=== PATIENT | female | born 1960 | race Caucasian/White ===

== ENCOUNTER 2019-08-15 08:54 | Outpatient (CLI) | payer OTHER ==
[2019-08-15] MEDS ORDERED: THC PO (09:22)
[2019-08-15] MEDS ORDERED: SIMV20TA19 PO (09:22)
[2019-08-15 10:10] LABS: ANION GAP 7 mmol/L (5-15); CALCIUM 9.2 mg/dL (8.5-10.1); CHLORIDE 107 mmol/L (98-107); CREATININE 0.91 mg/dL (0.55-1.02)
[2019-08-15 10:23] LABS: BASOPHILS # (AUTO) 0.03 x10^3/uL (0-0.1); BASOPHILS % (AUTO) 1 % (0-1); EOSINOPHILS # (AUTO) 0.11 x10^3/uL (0-0.4); EOSINOPHILS % (AUTO) 2 % (1-7); LYMPHOCYTES # (AUTO) 1.38 x10^3/uL (1-3.4); LYMPHOCYTES % (AUTO) 23 % (22-44); MD NO; MEAN CORPUSCULAR HEMOGLOBIN 32.2 pg (27.0-34.8); MEAN CORPUSCULAR HGB CONC 33.7 g/dL (32.4-35.8); MEAN CORPUSCULAR VOLUME 95.6 fL (80-100); MEAN PLATELET VOLUME 8.9 fL (7.4-10.4); MONOCYTES # (AUTO) 0.55 x10^3/uL (0.2-0.8); MONOCYTES % (AUTO) 9 % (2-9); NEUTROPHILS # (AUTO) 4.06 x10^3/uL (1.8-6.8); NEUTROPHILS % (AUTO) 66 % (42-75); PLATELET COUNT 180 x10^3/uL (130-400); RED BLOOD COUNT 4.61 x10^6/uL (3.82-5.3); RED CELL DISTRIBUTION WIDTH 12.9 % (9.6-15.2)
== END 2019-08-15 23:59 | disposition home or self-care (01) ==
LOC: STAR 08:54
PROVIDERS: ATTEND Orthopaedic Surgery
DX: Z01.818 Encounter for other preprocedural examination (principal); M17.12 Unilateral primary osteoarthritis, left knee
CPT/HCPCS: 36415; 80048; 85025; 87081; 93005

== ENCOUNTER 2019-08-22 05:35 | Observation (INO) | payer OTHER ==
[~2019-08-22] VITALS: Ht 162.6 cm; Wt 82.0 kg
[~2019-08-22 05:35] MED LIST: SIMV20TA3 PO; THC PO
[2019-08-22] MEDS ORDERED: KETOROLAC 60 MG/2 ML ONE (06:28)
[2019-08-22] MEDS ORDERED: ROPIvacaine/PF 0.2%, 20 ML ONE (06:28)
[2019-08-22] MEDS ORDERED: SODIUM CHLORIDE 0.9% 50 ML ONE (06:28)
[2019-08-22] MEDS ORDERED: TRANEXAMIC ACID 100 MG/ML, 10ML ONE (06:28)
[2019-08-22] MEDS ORDERED: EPINEPHRINE 1 MG/ML, 1ML ONE (06:28)
[2019-08-22] MEDS ORDERED: LACTATED RINGERS 1,000 ML IV SCH (06:34)
[2019-08-22] MEDS ORDERED: FENTANYL PF 250 MCG/5ML ONE (06:44)
[2019-08-22] MEDS ORDERED: MIDAZOLAM 1 MG/ML, 2ML ONE (06:44)
[2019-08-22] MEDS ORDERED: GABAPENTIN 300 MG CAPSULE ONE (06:53)
[2019-08-22] MEDS ORDERED: ACETAMINOPHEN 500 MG TABLET ONE (06:53)
[2019-08-22] MEDS ORDERED: ACETAMINOPHEN 500 MG TABLET PO ONE (07:00)
[2019-08-22] MEDS ORDERED: GABAPENTIN 300 MG CAPSULE PO ONE (07:00)
[2019-08-22] MEDS ORDERED: ONDANSETRON 2MG/ML, 2ML ONE (07:47)
[2019-08-22] MEDS ORDERED: DEXAMETHASONE 4 MG/ML, 1ML ONE (07:47)
[2019-08-22] MEDS ORDERED: BUPIVACAINE/PF 0.25% ONE (07:47)
[2019-08-22] MEDS ORDERED: PROPOFOL 10 MG/ML, 20ML ONE (07:47)
[2019-08-22] MEDS ORDERED: CEFAZOLIN 1,000 MG ONE (07:47)
[2019-08-22] MEDS ORDERED: ALBUTEROL/IPRATROPIUM 2.5MG/0.5MG, 3 ML NPPB PRN (08:00)
[2019-08-22] MEDS ORDERED: PROMETHAZINE 25 MG/ML, 1ML IV PRN (08:00)
[2019-08-22] MEDS ORDERED: MIDAZOLAM 1 MG/ML, 2ML IV PRN (08:00)
[2019-08-22] MEDS ORDERED: DIAZEPAM 5 MG/ML, 2ML IVPush PRN (08:00)
[2019-08-22] MEDS ORDERED: MEPERIDINE/PF 25MG/ML,1ML IVPush PRN (08:00)
[2019-08-22] MEDS ORDERED: HYDROmorphone 2 MG/ML, 1ML IVPush PRN (08:00)
[2019-08-22] MEDS ORDERED: OXYcodone 5 MG/5 ML ORAL.SOL UDC PO PRN (08:00)
[2019-08-22] MEDS ORDERED: METOPROLOL 1 MG/ML, 5ML IV PRN (08:00)
[2019-08-22] MEDS ORDERED: hydrALAzine 20 MG/ML, 1ML IV PRN (08:00)
[2019-08-22] MEDS ORDERED: FENTANYL PF 100 MCG/2ML ONE (08:30)
[2019-08-22] MEDS ORDERED: OXYcodone 5 MG/5 ML ORAL.SOL UDC ONE (08:30)
[2019-08-22] MEDS: FENTANYL PF 100 MCG/2ML IV PRN ×3 (08:32→09:02)
[2019-08-22] MEDS ORDERED: D5%-0.45% NACL 1,000 ML IV SCH (08:32)
[2019-08-22] MEDS ORDERED: MEPERIDINE/PF 25MG/ML,1ML ONE (08:34)
[2019-08-22] MEDS ORDERED: ZOLPIDEM 5MG TABLET PO PRN (09:00)
[2019-08-22] MEDS ORDERED: HYDROmorphone 1 MG/ML, 1ML INJ IVPush PRN (09:00)
[2019-08-22] MEDS ORDERED: ONDANSETRON 2MG/ML, 2ML IV PRN (09:00)
[2019-08-22] MEDS ORDERED: BISACODYL 10 MG SUPP PR PRN (09:00)
[2019-08-22] MEDS ORDERED: DIAZEPAM 5 MG TABLET PO PRN (09:00)
[2019-08-22] MEDS ORDERED: PROMETHAZINE 25 MG/ML, 1ML IM PRN (09:00)
[2019-08-22] MEDS ORDERED: ACETAMINOPHEN 500 MG TABLET PO SCH (09:00)
[2019-08-22] MEDS ORDERED: DOCUSATE 100 MG CAPSULE PO SCH (09:00)
[2019-08-22] MEDS ORDERED: FERROUS SULFATE 325 MG TABLET PO SCH (09:00)
[2019-08-22] MEDS ORDERED: TRANEXAMIC ACID 1,000 MG in SODIUM CHLORIDE 0.9% 100 ML IVPB ONE (09:00)
[2019-08-22] MEDS ORDERED: OXYcodone IR 5MG TABLET PO PRN (09:00)
[2019-08-22] MEDS ORDERED: MULTIVITAMINS/MINERALS TABLET PO SCH (09:00)
[2019-08-22] MEDS ORDERED: ASCORBIC ACID 500 MG TABLET PO SCH (09:00)
[2019-08-22] MEDS ORDERED: PSYLLIUM PACKET PO PRN (09:00)
[2019-08-22] MEDS ORDERED: SCOPOLAMINE PATCH, 1.5MG PATCH.TD72 TD SCH (09:00)
[2019-08-22] MEDS ORDERED: ONDANSETRON 4 MG TABLET PO PRN (09:00)
[2019-08-22] MEDS ORDERED: SENNA/DOCUSATE TABLET PO PRN (09:00)
[2019-08-22] MEDS ORDERED: PROMETHAZINE 12.5 MG SUPP PR PRN (09:00)
[2019-08-22] MEDS ORDERED: DIPHENHYDRAMINE 25 MG CAPSULE PO PRN (09:00)
[2019-08-22] MEDS ORDERED: MAGNESIUM HYDROXIDE 8%, 30ML UDC PO PRN (09:00)
[2019-08-22] MEDS ORDERED: ALUMINUM/MAG/SIMETHICONE 30 ML UDC PO PRN (09:00)
[2019-08-22] MEDS ORDERED: HYDROmorphone 2 MG/ML, 1ML ONE (10:24)
[2019-08-22] MEDS: KETOROLAC 30 MG/1 ML IV SCH ×2 (10:43→16:15)
[2019-08-22] MEDS: CALCIUM/VITAMIN D3 250-125 TABLET PO SCH ×2 (10:43→16:16)
[2019-08-22 14:00] VITALS: BP 106/69
[2019-08-22] MEDS ORDERED: CEFAZOLIN PMX 1GM/50ML 50 ML IVPB SCH (14:30)
[2019-08-22] MEDS ORDERED: ASPIRIN 81 MG TABLET EC PO SCH (17:00)
[2019-08-22] MEDS ORDERED: SIMVASTATIN 20 MG TABLET PO SCH (21:00)
[2019-08-23] MEDS ORDERED: DEXAMETHASONE 4 MG/ML, 1ML IVPush ONE (09:00)
== END 2019-08-22 17:20 | disposition home or self-care (01) ==
LOC: OUT 05:35 → ORIP 08:32 → 4NE 09:35 → DCLOUNGE 17:10
PROVIDERS: ADMIT Orthopaedic Surgery; ATTEND Orthopaedic Surgery
DX: M17.12 Unilateral primary osteoarthritis, left knee (principal); Z79.899 Other long term (current) drug therapy
CPT/HCPCS: 27447; 73560; 96365; 96375; 97161; C1713; C1776; G0378; J0171; J0690; J1100; J1170; J1885; J2175; J2250; J2405; J2704; J2795; J3010; J3490; J7120